=== PATIENT | female | born 2005 | race Hispanic/Latino ===

== ENCOUNTER 2024-08-15 20:29 | Emergency (ER) | payer SELFPAY, OTHER ==
--- OUTSIDE RECORDS SUMMARY | 2024-08-15 20:32 | XMS REPORT | Continuity of Care Document ---
Author Name Unknown Address [address] [facility] [place] [address] [facility] Address [address] [facility] [address] [place] [address] Care Team Providers Care Ranch Helper Name Role Phone SAMMY MARIO Primary Care Physician Unavail able MARIE MARTINEZ Attending Clinician Unavailable MAIRE MARTINEZ Attending Clinician Unavailable MARCUS LEON Attending Clinician Unavailable Doctor Unassigned, [place] Attending Clinician U Destini Hair MD Attending Clinician DESTINI TENORIO Attending Clinician Unavailable Payers Payer Name Policy Type Policy Number Effective Date Expirati on Date Source [employer] [id number] 2023 00:00:00 [employer] [id number] 2022 00:00:00 Allergies, Adverse Reactions, Alerts Allergy Name Allergy Type Status Severity Reaction(s) Onset Date Inactive Date Treating Clinician Comments Source NO KNOWN ALLERGIE S Drug Class Active [facility] Social History Social Habit Start Date Stop Date Quantity Comments Source Gender identity [facility] Sexual orientation [facility] Alcoholic beverage intake 2024-03-19 00:00:00 2024-03-19 00:00:00 Current drinker of alcohol (finding) [facility] Tobacco use and exposure 2024-03-11 00:00:00 2024-03-11 00:00:00 Smokeless tobacco non-user [facility] History of Social function 2024-03-11 00:00:00 2024-03-11 00:00:00 [facility] Alcohol Comment 2024-03-11 00:00:00 2024-03-11 00:00:00 socially [facility] Sex assigned at 2005 00:00:00 2005 00:00:00 [facility] Smoking Status Start Date Stop Date Source Tobacco smoking consumption unknown [facility] Never smoked tobacco [facility] Medications Ordered Medication Name Filled Medication Name Start Date Stop Date Current Medication? Ordering Clinician Indication Dosage Frequency Signature (SIG) Comments Components Source levonorgest reL (MIRENA) IUD 1 Device 03-23 19:30: 00 03-23 18:40 :00 No [id number] 1{devic e} [facility] citalopram 20 mg tablet 03-11 15:42: 37 Yes 20mg Take 1 tablet by mouth in the morning. [facility] amoxicillin (TRIMOX) capsule 500 mg 06-06 03:45: 00 06-06 03:38 :00 No 500mg 500 mg, Oral, ONCE, 1 dose, On [place] 06/05/23 at 2245, JEB
Re ason for Anti-Infec tive: Empiric Therapy for Suspected Infection< br>Empiric Therapy Site: Urine
D uration of therapy: 5 days [facility] amoxicillin 500 mg capsule 06-05 00:00: 00 06-11 04:59 :00 No [id number] 500mg Take 1 capsule by mouth in the morning and 1 capsule at noon and 1 capsule in the evening. Do all this for 5 days. [facility] Vital Signs Vital Name Observation Time Observation Value Comments S antolin BMI 2024-03-23 18:08:00 26.41 kg/m2 [facility] Systolic blood pressure 2024-03-23 18:08:00 118 mm[Hg] [facility] Diastolic blood pressure 2024-03-23 18:08:00 74 mm[Hg] [facility] Heart rate 2024-03-23 18:08:00 74 /min [facility] Body temperature 2024-03-23 18:08:00 36.67 Breonna [facility] Respiratory rate 2024-03-23 18:08:00 18 /min [facility] Body height 2024-03-23 18:08:00 154.9 cm [facility] Body weight 2024-03-23 18:08:00 63.413 kg [facility] Systolic blood pressure 2024-03-19 19:51:00 108 mm[Hg] [facility] Diastolic blood pressure 2024-03-19 19:51:00 66 mm[Hg] [facility] Heart rate 2024-03-19 19:51:00 64 /min [facility] Body height 2024-03-19 19:51:00 154.9 cm [facility] Body weight 2024-03-19 19:51:00 63.685 kg [facility] BMI 2024-03-19 19:51:00 26.53 kg/m2 [facility] Systolic blood pressure 2024-03-11 20:35:00 127 mm[Hg] [facility] Diastolic blood pressure 2024-03-11 20:35:00 80 mm[Hg] [facility] Heart rate 2024-03-11 20:35:00 65 /min [facility] Body temperature 2024-03-11 20:35:00 36.11 Breonna [facility] Respiratory rate 2024-03-11 20:35:00 18 /min [facility] Body height 2024-03-11 20:35:00 154.9 cm [facility] Body weight 2024-03-11 20:35:00 65.046 kg [facility] BMI 2024-03-11 20:35:00 27.10 kg/m2 [facility] Oxygen saturation in Arterial blood by Pulse oximetry 2023-06-06 02:31:00 99 /min [facility] Systolic blood pressure 2023-06-06 02:31:00 121 mm[Hg] [facility] Diastolic blood pressure 2023-06-06 02:31:00 90 mm[Hg] Baxter o f [facility] Heart rate 2023-06-06 02:31:00 115 /min [facility] Body temperature 2023-06-06 02:31:00 37.5 Breonna [facility] Respiratory rate 2023-06-06 02:31:00 18 /min [facility] Body height 2023-06-06 02:31:00 154.9 cm [facility] Body weight 2023-06-06 02:31:00 54.976 kg [facility] BMI 2023-06-06 02:31:00 22.90 kg/m2 [facility] Procedures Procedure Date / Time Performed Performing Clinicia n Source POCT TEST 2024-03-23 00:00:00 Marie Martinez [facility] POCT TEST 2024-03-19 00:00:00 AdMarie keith [facility] POCT TEST 2023-06-06 02:36:00 Destini Tenorio [facility] URINALYSIS 2023-06-06 02:34:00 Destini Tenorio [facility] NOTICE OF PRIVACY PRACTICES 2023-06-06 02:24:19 Doctor Unassigned, [place] [facility] CONSENT/REFUSAL FOR DIAGNOSIS AND TREATMENT 2023-06-06 02:22:55 Doctor Unassigned, [place] [facility] Encounters Start Date/Time End Date/Time Encounter Type Admission Type Attending Clinicians Care Facility Care Department Encounter ID Source 2025-03-17 15:00:00 2025-03-17 15:00:00 Outpatient MARIE NIÑO VIVIAN [facility] [id number] [facility] 2024-07-26 10:30:00 2024-07-26 10:30:00 Outpatient MARCUS KRAMER [facility] [id number] [facility] 2024-07-14 10:00:00 2024-07-14 10:00:00 Outpatient MARIE NIÑO VIVIAN [facility] [id number] [facility] 2024-05-26 11:30:00 2024-05-26 11:30:00 Outpatient R MARCUS LEON [facility] [id number] [facility] 2024-05-14 16:00:00 2024-05-14 16:00:00 Outpatient R ADMARIE KEITH [facility] [id number] [facility] 2024-03-30 00:00:00 2024-05-01 18:21:36 Patient Secure Msg Doctor Unassigned, [place] [facility] [id number] [id number] [id number] [id number] 134 [id number] [facility] 2024-03-30 00:00:00 2024-04-05 08:48:20 Telephone AdjoshMarie [facility] [id number] [id number] [id number] [id number] 134 [id number] [facility] 2024-03-23 13:00:00 2024-03-23 13:30:00 Office Visit AdMarie keith [facility] [id number] [id number] [id number] [id number] [facility] 2024-03-23 13:00:00 2024-03-23 13:00:00 Outpatient R GERALDINE MARIE [facility] [id number] [facility] 2024-03-19 15:00:00 2024-03-19 15:30:00 Office Visit AdMarie keith [facility] [id number] [id number] [id number] [id number] 134 [id number] [facility] 2024-03-19 15:00:00 2024-03-19 15:00:00 Outpatient R MARIE MARTINEZ VIVIAN [facility] [id number] [facility] 2024-03-18 00:00:00 2024-03-18 14:24:18 Telephone Marie Martinez [facility] [id number] 350.1.13.10 [id number] [id number] 134 [id number] [facility] 2024-03-11 15:00:00 2024-03-11 16:01:56 Outpatient R MARIE MARTINEZ [facility] [id number] [facility] 2024-03-11 15:00:00 2024-03-11 16:01:56 Office Visit Marie Martinez [facility] [id number] [id number] 4.2.7.2.686 [id number] 134 [id number] [facility] 2023-06-05 21:42:00 2023-06-05 22:44:00 Emergency Destini Tenorio [facility] [id number] 350.1.13.10 [id number] [id number] [facility] 2023-06-05 21:42:00 2023-06-05 22:44:00 Emergency X DESTINI TENORIO [facility] ERT [id number] [facility] Results Test Description Test Time Test Comments Results Result Co mments Source [facility] [id number] 18:06:00* Test Item Value Reference Range Interpretation Comme nts POCT PREG (test code = 1605) Negative On board controls acceptable with C Line (test code = 3574) Yes POCT PREG LOT # (test code = 3575) POCT PREG TEST DATE ( test code = 3576) [facility] [id number] 19:52:00* Test Item Value Reference Range Interpretation Comme nts POCT PREG (test code = 1605) Negative On board controls acceptable with C Line (test code = 3574) Yes POCT PREG LOT # (test code = 3575) POCT PREG TEST DATE ( test code = 3576) [facility] [id number] 19:52:00* Test Item Value Reference Range Interpretation Comme nts POCT PREG (test code = 1605) Negative On board controls acceptable with C Line (test code = 3574) Yes POCT PREG LOT # (test code = 3575) POCT PREG TEST DATE ( test code = 3576) [facility] [id number] 02:36:00* Test Item Value Reference Range Interpretation Comme nts POCT PREG (test code = 1605) Positive On board controls acceptable with C Line (test code = 3574) Yes POCT PREG LOT # (test code = 3575) [id number] POCT PREG TEST DATE ( test code = 3576) 10/08/2024 Lab Interpretation (test cod e = 52926-4) Normal [facility] Notes Date/Time Note Provider Source 2024-04-05 08:45:57 Attempted to contact patient x3 times. Will close encounter. Dre Cruz RN 04/05/2024 8:48 AM Dre Cruz RN [facility] 2024-03-31 08:14:03 Attempted to contact patient. No answer, VM left. Dre Cruz RN 03/31/2024 8:14 AM [facility] 2024-03-30 14:35:45 Pt is returning Nurse's call and has questions regarding results. Would like Nurse to call her back. Sherry Navas [facility] 2024-03-18 14:22:07 Returned call, verified name and . Per patient cycles was very heavy this morning but since it has lightened up. Informed pt that it is okay for IUD to be placed while on cycle as long as period is not excessive. Informed patient that is cycle is very heavy to call us tomorrow for evaluations. Pt verbalized understanding. Janene Caro MA [facility] 2024-03-18 11:59:00 Pt just started her first cycle since giving (it is heavy ellen) she is scheduled for IUD procedure tomorrow and would like to know if she needs to reschedule that appt. Please assist Laura Skinner [facility] 2023-06-05 22:42:07 Formatting of this n ote might be different from the original. Pt discharged home. Given all education and information regarding prescriptions, specialty follow up and s/s of worsening condition. Patient verbalized understanding. Alert and ambulatory to pov with mother. Kina Ramirez RN [facility] 2023-06-05 21:31:00 Formatting of this n ote might be different from the original. 

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
[2024-08-15] MEDS ORDERED: IBUPROFEN 400 MG TAB ONE (21:56)
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
[2024-08-15 23:16] VITALS: TEMP 97.5
[2024-08-15 23:18] VITALS: BP 112/80; O2SAT 99
== END 2024-08-15 22:28 | disposition home or self-care (01) ==
LOC: ER 20:29
DX: S09.90XA Unspecified injury of head, initial encounter (principal); S43.492A Other sprain of left shoulder joint, initial encounter; S40.012A Contusion of left shoulder, initial encounter; V49.59XA Passenger injured in collision with other motor vehicles in traffic accident, initial encounter
CPT/HCPCS: 70450; 99284